=== PATIENT | female | born 1970 | race Caucasian/White ===

== ENCOUNTER 2023-12-25 17:13 | Emergency (ER) | payer BC ==
[~2023-12-25] VITALS: Ht 160 cm; Wt 68.0 kg
[2023-12-25 17:21] VITALS: O2SAT 97
[2023-12-25] MEDS ORDERED: GUAI600T26 MT (17:48)
[2023-12-25 18:04] VITALS: BP 134/76; PULSE 81; RESP 12; TEMP 98.5
== END 2023-12-25 18:06 | disposition home or self-care (01) ==
LOC: ER 17:13
DX: B34.9 Viral infection, unspecified (principal); Z98.890 Other specified postprocedural states; Z90.49 Acquired absence of other specified parts of digestive tract
CPT/HCPCS: 71045; 99283